=== PATIENT | female | born 1950 | race Caucasian/White ===

== ENCOUNTER 2018-08-19 13:50 | Inpatient (IN) | payer OTHER ==
[2018-08-19 14:37] VITALS: BP 129/76
[2018-08-19] MEDS ORDERED: Magnesium Hydroxide (MOM) 30 mL UDC PO PRN (19:54)
[2018-08-19] MEDS ORDERED: Maalox 30 mL Cup PO PRN (19:54)
[2018-08-20] MEDS: Multivitamin Tab PO SCH (08:04)
--- NOTE | 2018-08-20 09:01 | History and Physical ---
History of Present Illness - HPI Chief Complaint: Suicidal Ideation HPI: 68 y/o female who was transferred to [facility] from [facility] ER when patient was found to have cuts to her wrists. Patient has a known history of depression with a history of attempted overdose one week ago. Patient was transferred here for further evaluation and treatment. Vital Signs: Last Vital Signs Temp 97.3 F 08/20/18 06:56 Pulse 91 08/20/18 06:56 Resp 19 08/20/18 06:56 BP 123/80 08/20/18 06:56 Pulse Ox 97 08/20/18 06:56 Past Medical History Cardiovascular: Report: No Pertinent Hx Pulmonary: Report: No Pertinent Hx SALESPERSON FASHION ACCESSORIES: Report: No Pertinent Hx GI: Report: No Pertinent Hx Psych: Report: Psychosis Musculoskeletal: Report: No Pertinent Hx Rheumatologic: Report: No pertinent Hx Infectious Disease: Report: No Pertinent Hx Renal/: Report: No Pertinent Hx Endocrine: Report: No Pertinent Hx Dermatology: Report: No Pertinent Hx - Past Surgical History Past Surgical History: No pertinent Hx Social History Smoke: No Alcohol: None Drugs: None Lives: With Family - Allergies Allergies/Adverse Reactions: Allergies Allergy/AdvReac Type Severity Reaction Status Date / Time codeine Allergy Mild NAUSEA Verified 08/19/18 14:42 SULFA Allergy Mild SKIN Uncoded 08/19/18 14:42 REDNESS TAPE Allergy Unknown RASH Uncoded 08/19/18 14:52 Review of Systems - Review of Systems Constitutional: Report: No Significant Eyes: Report: No Significant ENT: Report: No Significant Respiratory: Report: No Significant Cardiovascular: Report: No Significant Gastrointestinal: Report: No Significant Genitourinary: Report: No Significant Musculoskeletal: Report: No Significant Skin: Report: No Significant Neurological: Report: No Significant Physical Exam - Physical Exam HEENT: Report: Ears Nose Throat within normal limits, Pharnyx within normal limits Neck: Report: Within normal limits Cardiovascular Systems: Report: +s1/s2 noted, Regular, Rate and Rhythm Respiratory: Report: Breath Sounds are within normal limits Abdomen: Report: Non-tender to palpation Back: Report: Inspection of back is within normal limits. Extremities: Report: Non-tender to palpation. Skin: Report: Color of skin is within normal limits Neuro/Psych: Report: Mood affect is within normal limits - Assessment Assessment: psychosis depression anxiety disorder insomnia arthritis - Plan Plan: admit to [facility]
--- NOTE | 2018-08-21 06:07 | Psychiatric Evaluation ---
DATE OF SERVICE: PSYCHIATRIC INITIAL EVALUATION AND MENTAL STATUS EXAM PATIENT'S AGE: 68-year-old. SEX: Female. PHYSICIAN: Dr. Sotomayor. CHIEF COMPLAINT: "I overdosed on pills a week and half ago." HISTORY OF PRESENT ILLNESS: The patient is a 68-year-old female with a history of depression. The patient overdosed on pills about one and half weeks ago. The patient said that she has been feeling depressed and she is a and her 4 years ago. She has been feeling hopeless and helpless. The patient also started to cut her wrists and that is when she was admitted to [facility] where she got treatment there and the patient after that was waiting for placement in a psych facility. The patient said that she has been feeling hopeless and helpless and has been very depressed and she felt that there is no reason for her to live. She also is feeling lonely. She also has been having lack of motivations and lack of energy. PAST PSYCHIATRIC HISTORY: The patient said that she was in treatment with a psychologist, but never seen a psychiatrist. PAST MEDICAL HISTORY: No major medical problems except that the patient cut her wrists. SOCIAL HISTORY: The patient lives by herself. She has two sons, one live in the city [facility] and the other lives in the [facility]. The patient lives in the [facility]. She denies any alcohol or any street drug use and she denies any legal issues or abuse issues. ALLERGIES: No known allergies. MENTAL STATUS EXAMINATION: The patient appears her stated age. Anxious. Sad affect. In a depressed mood. Poor eye contact. Normal tone and rate of speech. Thought processes are mainly goal directed. The patient denies any hallucinations or delusions. She denies any homicidal ideations, but admits to suicidal ideations. The patient is alert and oriented to time, place, person, and situation. Intact immediate, recent and remote memories. Fair insight, but poor judgment. She seems to be of average intelligence based on her verbal ability. ASSESSMENT: PRIMARY DIAGNOSIS: Major depression, severe, recurrent, without psychotic features. TREATMENT PLAN: We will monitor the patient's behavior and condition closely. We will start individual as well as milieu psychotherapy. We will monitor psychotropic medications and we will increase Lexapro to 15 mg every day. ESTIMATED LENGTH OF STAY: 5-7 days. THE PATIENT'S STRENGTHS AND WEAKNESSES: The patient's general fund of knowledge is fair and she has supportive children. Weaknesses is her ineffective coping. AFTER DISCHARGE PLAN: Outpatient treatment and followup will continue as an outpatient. CRITERIA FOR DISCHARGE: The patient will not be psychotic and will not be suicidal and will stabilize psychotropic medications. [facility]# [id number]
[2018-08-21] MEDS: Multivitamin Tab PO SCH (08:21)
--- NOTE | 2018-08-21 08:40 | General Progress Note ---
Subjective - Review of Systems Service Date: 08/21/18 Subjective: Patient is awake, alert. no acute distress VS T97.8 P81 R18 BP 151/83 Objective - Physical Exam Vitals and I&O: Vital Signs Temp 97.8 F 08/21/18 06:37 Pulse 81 08/21/18 06:37 Resp 18 08/21/18 06:37 BP 151/83 08/21/18 06:37 Pulse Ox 98 08/21/18 06:37 Intake & Output 08/20/18 08/21/18 08/21/18 18:59 06:59 18:59 Intake Total 960 240 Balance 960 240 Intake: Oral 960 240 Other: # Voids 3 1 # Bowel Movements 1 Active Medications: Current Medications Acetaminophen (Tylenol) 650 mg PO Q4HR PRN PRN Reason: Mild Pain 1-3 / Temp above 100 Stop: 10/18/18 19:53 Al Hydrox/Mg Hydrox/Simethicone (Maalox) 30 ml PO Q4HR PRN PRN Reason: GI DISTRESS Stop: 10/18/18 19:53 Last Admin: 08/20/18 09:27 Dose: 30 ml Escitalopram Oxalate (Lexapro) 15 mg PO DAILY KEM; Protocol Stop: 10/19/18 08:59 Last Admin: 08/21/18 08:21 Dose: 15 mg Lorazepam (Ativan) 0.5 mg PO Q4HR PRN; Protocol PRN Reason: Anxiety Stop: 09/18/18 19:53 Last Admin: 08/21/18 04:42 Dose: 0.5 mg Magnesium Hydroxide (Milk Of Magnesia) 30 ml PO HS PRN PRN Reason: Constipation Multivitamins/Vitamin C (Theragran) 1 tab PO DAILY KEM Stop: 10/19/18 08:59 Last Admin: 08/21/18 08:21 Dose: 1 tab Quetiapine Fumarate (Seroquel) 25 mg PO BID KEM; Protocol Stop: 10/18/18 16:59 Last Admin: 08/21/18 08:21 Dose: 25 mg Quetiapine Fumarate (Seroquel) 100 mg PO HS KEM; Protocol Stop: 10/18/18 20:59 Last Admin: 08/20/18 21:12 Dose: 100 mg Tramadol HCl (Ultram) 50 mg PO Q6HR PRN PRN Reason: SEVERE PAIN Stop: 10/18/18 16:51 Last Admin: 08/21/18 08:20 Dose: 50 mg Trazodone HCl (Desyrel) 100 mg PO HS KEM; Protocol Stop: 10/18/18 20:59 Last Admin: 08/20/18 21:11 Dose: 100 mg Zolpidem Tartrate (Ambien) 5 mg PO HS PRN PRN Reason: Insomnia Stop: 10/18/18 19:53 General: Alert, No acute distress HEENT: Atraumatic, PERRLA, EOMI Neck: Supple Cardiovascular: Regular rate, Normal S1, Normal S2 Lungs: Clear to auscultation Abdomen: Bowel sounds Extremities: no Clubbing, no Cyanosis, no Edema Neurological: Normal gait Assessment/Plan - Assessment Assessment: psychosis depression anxiety disorder insomnia arthritis BP elevated. - Plan Plan: continue current treatment.
--- NOTE | 2018-08-22 05:49 | General Progress Note ---
Subjective - Review of Systems Service Date: 08/22/18 Subjective: Patient is awake, alert. no acute distress VS T97.2 P81 R18 BP 143/76 Objective - Physical Exam Vitals and I&O: Vital Signs Temp 98.2 F 08/21/18 21:44 Pulse 81 08/21/18 21:44 Resp 18 08/21/18 21:44 BP 143/76 08/21/18 21:44 Pulse Ox 97 08/21/18 21:44 Intake & Output 08/21/18 08/21/18 08/22/18 06:59 18:59 06:59 Intake Total 240 1000 Balance 240 1000 Intake: Oral 240 1000 Other: # Voids 1 3 # Bowel Movements 1 Stool Characteristics Soft Active Medications: Current Medications Acetaminophen (Tylenol) 650 mg PO Q4HR PRN PRN Reason: Mild Pain 1-3 / Temp above 100 Stop: 10/18/18 19:53 Al Hydrox/Mg Hydrox/Simethicone (Maalox) 30 ml PO Q4HR PRN PRN Reason: GI DISTRESS Stop: 10/18/18 19:53 Last Admin: 08/20/18 09:27 Dose: 30 ml Escitalopram Oxalate (Lexapro) 15 mg PO DAILY KEM; Protocol Stop: 10/19/18 08:59 Last Admin: 08/21/18 08:21 Dose: 15 mg Lorazepam (Ativan) 0.5 mg PO Q4HR PRN; Protocol PRN Reason: Anxiety Stop: 09/18/18 19:53 Last Admin: 08/21/18 20:52 Dose: 0.5 mg Magnesium Hydroxide (Milk Of Magnesia) 30 ml PO HS PRN PRN Reason: Constipation Multivitamins/Vitamin C (Theragran) 1 tab PO DAILY KEM Stop: 10/19/18 08:59 Last Admin: 08/21/18 08:21 Dose: 1 tab Quetiapine Fumarate (Seroquel) 25 mg PO BID KEM; Protocol Stop: 10/18/18 16:59 Last Admin: 08/21/18 16:29 Dose: 25 mg Quetiapine Fumarate (Seroquel) 100 mg PO HS KEM; Protocol Stop: 10/18/18 20:59 Last Admin: 08/21/18 20:52 Dose: 100 mg Tramadol HCl (Ultram) 50 mg PO Q6HR PRN PRN Reason: SEVERE PAIN Stop: 10/18/18 16:51 Last Admin: 08/21/18 20:52 Dose: 50 mg Trazodone HCl (Desyrel) 100 mg PO HS KEM; Protocol Stop: 10/18/18 20:59 Last Admin: 08/21/18 20:53 Dose: 100 mg Zolpidem Tartrate (Ambien) 5 mg PO HS PRN PRN Reason: Insomnia Stop: 10/18/18 19:53 General: Alert, No acute distress HEENT: Atraumatic, PERRLA, EOMI Neck: Supple Cardiovascular: Regular rate, Normal S1, Normal S2 Lungs: Clear to auscultation Abdomen: Bowel sounds Extremities: no Clubbing, no Cyanosis, no Edema Neurological: Normal gait Assessment/Plan - Assessment Assessment: psychosis depression anxiety disorder insomnia arthritis BP elevated. - Plan Plan: continue current treatment.
[2018-08-22] MEDS: Multivitamin Tab PO SCH (08:42)
--- NOTE | 2018-08-23 00:58 | Progress Notes ---
DATE: 08/22/2018 SUBJECTIVE: The patient was seen, chart reviewed, and discussed with staff. The patient continues to be depressed, feelings of hopelessness, helplessness with thoughts of wanting to overdose. The patient cites a recent of her as a primary source of distress. She has, however, been eating and sleeping okay, has been active on the unit and attends all of her groups. PLAN: The patient continues to be very depressed, actively suicidal, so that she will require inpatient care center treatment. We will monitor patient on a daily basis for response to medications and titrate medication as needed. [facility]# [id number]
--- NOTE | 2018-08-23 05:26 | General Progress Note ---
Subjective - Review of Systems Service Date: 08/23/18 Subjective: Patient is awake, alert. no acute distress VS T98.2 P67 R19 BP 141/87 Objective - Physical Exam Vitals and I&O: Vital Signs Temp 98.2 F 08/22/18 20:00 Pulse 67 08/22/18 20:00 Resp 19 08/22/18 20:00 BP 141/87 08/22/18 20:00 Pulse Ox 99 08/22/18 20:00 Intake & Output 08/22/18 08/22/18 08/23/18 06:59 18:59 06:59 Intake Total 1600 Balance 1600 Intake: Oral 1600 Other: # Voids 4 Stool Characteristics Soft Formed Soft Brown Active Medications: Current Medications Acetaminophen (Tylenol) 650 mg PO Q4HR PRN PRN Reason: Mild Pain 1-3 / Temp above 100 Stop: 10/18/18 19:53 Al Hydrox/Mg Hydrox/Simethicone (Maalox) 30 ml PO Q4HR PRN PRN Reason: GI DISTRESS Stop: 10/18/18 19:53 Last Admin: 08/20/18 09:27 Dose: 30 ml Escitalopram Oxalate (Lexapro) 15 mg PO DAILY KEM; Protocol Stop: 10/19/18 08:59 Last Admin: 08/22/18 08:42 Dose: 15 mg Lorazepam (Ativan) 0.5 mg PO Q4HR PRN; Protocol PRN Reason: Anxiety Stop: 09/18/18 19:53 Last Admin: 08/23/18 04:46 Dose: 0.5 mg Magnesium Hydroxide (Milk Of Magnesia) 30 ml PO HS PRN PRN Reason: Constipation Multivitamins/Vitamin C (Theragran) 1 tab PO DAILY KEM Stop: 10/19/18 08:59 Last Admin: 08/22/18 08:42 Dose: 1 tab Quetiapine Fumarate (Seroquel) 25 mg PO BID KEM; Protocol Stop: 10/18/18 16:59 Last Admin: 08/22/18 16:49 Dose: 25 mg Quetiapine Fumarate (Seroquel) 100 mg PO HS KEM; Protocol Stop: 10/18/18 20:59 Last Admin: 08/22/18 20:14 Dose: 100 mg Tramadol HCl (Ultram) 50 mg PO Q6HR PRN PRN Reason: SEVERE PAIN Stop: 10/18/18 16:51 Last Admin: 08/22/18 20:14 Dose: 50 mg Trazodone HCl (Desyrel) 100 mg PO HS KEM; Protocol Stop: 10/18/18 20:59 Last Admin: 08/22/18 20:14 Dose: 100 mg Zolpidem Tartrate (Ambien) 5 mg PO HS PRN PRN Reason: Insomnia Stop: 10/18/18 19:53 General: Alert, No acute distress HEENT: Atraumatic, PERRLA, EOMI Neck: Supple Cardiovascular: Regular rate, Normal S1, Normal S2 Lungs: Clear to auscultation Abdomen: Bowel sounds Extremities: no Clubbing, no Cyanosis, no Edema Neurological: Normal gait Assessment/Plan - Assessment Assessment: psychosis depression anxiety disorder insomnia arthritis BP elevated. - Plan Plan: continue current treatment.
[2018-08-23] MEDS: Multivitamin Tab PO SCH (08:43)
--- NOTE | 2018-08-23 16:06 | Progress Notes ---
DATE: 08/21/2018 SUBJECTIVE: Chart reviewed and the patient interviewed. Also, discussed the patient's condition with the staff and reviewed records and labs. The patient continued to be severely depressed. She is still guarded and withdrawn. The patient also continued to feel hopeless and helpless. She is also interacting minimally with others. Otherwise, the patient is compliant with taking her medications as the patient denies any side effects of medications. ASSESSMENT: The patient is still depressed and high risk suicide. TREATMENT PLAN: Continue to monitor her behavior and her condition closely. Also, we will increase Lexapro to 15 mg every day and continue to follow up closely. [facility]# [id number]
--- NOTE | 2018-08-23 16:13 | Progress Notes ---
DATE: 08/23/2018 SUBJECTIVE: The patient was seen, chart reviewed, discussed with staff. The patient continues to be very depressed, feeling of hopelessness, helplessness and intermittent thoughts of wanting to overdose. She has, however, been compliant with her medications, following unit rules with no redirections. Denies any undue side effects at this time. PLAN: The patient continues to be very depressed and suicidal, so that she will require continued inpatient care facility stabilization and treatment. We will monitor patient on a daily basis for response to medications and titrate medication as needed. JOB# [id number]
--- NOTE | 2018-08-24 08:10 | General Progress Note ---
Subjective - Review of Systems Service Date: 08/24/18 Subjective: Patient is awake, alert. no acute distress VS T97.3 P91 R20 BP 125/84 Objective - Physical Exam Vitals and I&O: Vital Signs Temp 97.3 F 08/24/18 06:19 Pulse 91 08/24/18 06:19 Resp 20 08/24/18 06:19 BP 125/84 08/24/18 06:19 Pulse Ox 98 08/24/18 06:19 Intake & Output 08/23/18 08/24/18 08/24/18 18:59 06:59 18:59 Intake Total 1720 120 Balance 1720 120 Intake: Oral 1720 120 Other: # Voids 4 1 # Bowel Movements 0 Stool Characteristics Soft Active Medications: Current Medications Acetaminophen (Tylenol) 650 mg PO Q4HR PRN PRN Reason: Mild Pain 1-3 / Temp above 100 Stop: 10/18/18 19:53 Al Hydrox/Mg Hydrox/Simethicone (Maalox) 30 ml PO Q4HR PRN PRN Reason: GI DISTRESS Stop: 10/18/18 19:53 Last Admin: 08/20/18 09:27 Dose: 30 ml Escitalopram Oxalate (Lexapro) 15 mg PO DAILY KEM; Protocol Stop: 10/19/18 08:59 Last Admin: 08/23/18 08:42 Dose: 15 mg Lorazepam (Ativan) 0.5 mg PO Q4HR PRN; Protocol PRN Reason: Anxiety Stop: 09/18/18 19:53 Last Admin: 08/24/18 06:33 Dose: 0.5 mg Magnesium Hydroxide (Milk Of Magnesia) 30 ml PO HS PRN PRN Reason: Constipation Multivitamins/Vitamin C (Theragran) 1 tab PO DAILY KEM Stop: 10/19/18 08:59 Last Admin: 08/23/18 08:43 Dose: 1 tab Quetiapine Fumarate (Seroquel) 25 mg PO BID KEM; Protocol Stop: 10/18/18 16:59 Last Admin: 08/23/18 16:39 Dose: 25 mg Quetiapine Fumarate (Seroquel) 100 mg PO HS KEM; Protocol Stop: 10/18/18 20:59 Last Admin: 08/23/18 20:28 Dose: 100 mg Tramadol HCl (Ultram) 50 mg PO Q6HR PRN PRN Reason: SEVERE PAIN Stop: 10/18/18 16:51 Last Admin: 08/23/18 20:29 Dose: 50 mg Trazodone HCl (Desyrel) 100 mg PO HS KME; Protocol Stop: 10/18/18 20:59 Last Admin: 08/23/18 20:27 Dose: 100 mg Zolpidem Tartrate (Ambien) 5 mg PO HS PRN PRN Reason: Insomnia Stop: 10/18/18 19:53 General: Alert, No acute distress HEENT: Atraumatic, PERRLA, EOMI Neck: Supple Cardiovascular: Regular rate, Normal S1, Normal S2 Lungs: Clear to auscultation Abdomen: Bowel sounds Extremities: no Clubbing, no Cyanosis, no Edema Neurological: Normal gait Assessment/Plan - Assessment Assessment: psychosis depression anxiety disorder insomnia arthritis BP elevated. - Plan Plan: continue current treatment.
[2018-08-24] MEDS: Multivitamin Tab PO SCH (08:13)
--- NOTE | 2018-08-25 05:14 | Progress Notes ---
DATE: SUBJECTIVE: Chart reviewed and the patient interviewed. Also discussed the patient's condition with the staff and reviewed records and labs. The patient is still in a depressed mood and she is still withdrawn and guarded. The patient also is still feeling hopeless, but she denies any intention to harm herself or others. She also is cooperative and compliant with taking her medications with no side effects. ASSESSMENT: The patient is still depressed and needs close monitoring. TREATMENT PLAN: Continue to work on her depression and her ineffective coping and also continue adjusting psychotropic medications. Also working on discharge plans. JOB# [id number]
--- NOTE | 2018-08-25 08:11 | General Progress Note ---
Subjective - Review of Systems Service Date: 08/25/18 Subjective: Patient is awake, alert. no acute distress VS T97.9 P83 R20 BP 150/97 Objective - Physical Exam Vitals and I&O: Vital Signs Temp 97.9 F 08/25/18 06:43 Pulse 83 08/25/18 06:43 Resp 20 08/25/18 06:43 BP 150/97 08/25/18 06:43 Pulse Ox 97 08/25/18 06:43 Intake & Output 08/24/18 08/25/18 08/25/18 18:59 06:59 18:59 Intake Total 700 300 Balance 700 300 Intake: Oral 700 300 Other: # Voids 3 2 # Bowel Movements 0 0 Stool Characteristics Soft Soft Active Medications: Current Medications Acetaminophen (Tylenol) 650 mg PO Q4HR PRN PRN Reason: Mild Pain 1-3 / Temp above 100 Stop: 10/18/18 19:53 Al Hydrox/Mg Hydrox/Simethicone (Maalox) 30 ml PO Q4HR PRN PRN Reason: GI DISTRESS Stop: 10/18/18 19:53 Last Admin: 08/20/18 09:27 Dose: 30 ml Escitalopram Oxalate (Lexapro) 15 mg PO DAILY KEM; Protocol Stop: 10/19/18 08:59 Last Admin: 08/24/18 08:12 Dose: 15 mg Lorazepam (Ativan) 0.5 mg PO Q4HR PRN; Protocol PRN Reason: Anxiety Stop: 09/18/18 19:53 Last Admin: 08/25/18 06:32 Dose: 0.5 mg Magnesium Hydroxide (Milk Of Magnesia) 30 ml PO HS PRN PRN Reason: Constipation Multivitamins/Vitamin C (Theragran) 1 tab PO DAILY KEM Stop: 10/19/18 08:59 Last Admin: 08/24/18 08:13 Dose: 1 tab Quetiapine Fumarate (Seroquel) 25 mg PO BID KEM; Protocol Stop: 10/18/18 16:59 Last Admin: 08/24/18 17:06 Dose: 25 mg Quetiapine Fumarate (Seroquel) 100 mg PO HS KEM; Protocol Stop: 10/18/18 20:59 Last Admin: 08/24/18 20:39 Dose: 100 mg Tramadol HCl (Ultram) 50 mg PO Q6HR PRN PRN Reason: SEVERE PAIN Stop: 10/18/18 16:51 Last Admin: 08/25/18 04:33 Dose: 50 mg Trazodone HCl (Desyrel) 100 mg PO HS EKM; Protocol Stop: 10/18/18 20:59 Last Admin: 08/24/18 20:39 Dose: 100 mg Zolpidem Tartrate (Ambien) 5 mg PO HS PRN PRN Reason: Insomnia Stop: 10/18/18 19:53 General: Alert, No acute distress HEENT: Atraumatic, PERRLA, EOMI Neck: Supple Cardiovascular: Regular rate, Normal S1, Normal S2 Lungs: Clear to auscultation Abdomen: Bowel sounds Extremities: no Clubbing, no Cyanosis, no Edema Neurological: Normal gait Assessment/Plan - Assessment Assessment: psychosis depression anxiety disorder insomnia arthritis BP elevated. - Plan Plan: continue current treatment.
[2018-08-25] MEDS: Multivitamin Tab PO SCH (09:28)
--- NOTE | 2018-08-27 08:02 | Discharge Summary ---
DATE OF DISCHARGE: 08/25/2018 PATIENT'S AGE: 68. SEX: Female. PHYSICIAN: Dr. Sotomayor. FINAL DIAGNOSIS/PRIMARY DIAGNOSIS: Major depression, severe, recurrent, without psychotic features. REASON FOR HOSPITALIZATION: The patient was admitted to the hospital because of suicidal ideations. The patient overdosed on pills a week and a half prior to her admission and she was severely depressed. HOSPITAL COURSE: The patient continued to be severely depressed. The patient also continued to feel hopeless and helpless. The patient also interacted more with peers and with others. She started on Lexapro under the dose adjusted to 15 mg every day. The patient also continued to take Seroquel in a dose of 25 mg twice a day and 100 mg at bedtime. The patient was less agitated, less irritable, and she was cooperative with her treatment and compliant with taking her medications. The patient also had supportive therapy. The patient was discharged from the hospital to home. Physical exam of the patient was basically within normal. The patient had no major medical problems once in the hospital and the blood workup was also basically within normal. AFTER DISCHARGE PLAN: The patient discharged from the hospital and returned home with plans to follow her as an outpatient. The patient was given appointment to see me in my office in [place] on , 09/01. Also, we will order home health care for the patient. EXPECTED OUTCOME AFTER DISCHARGE: Fair if the patient continues her treatment and follow up with discharge plans. [facility]# [id number]
== END 2018-08-25 14:50 | disposition home or self-care (01) | DRG 885 ==
LOC: GERO 13:50
PROVIDERS: ADMIT Psychiatry & Neurology Psychiatry; ATTEND Psychiatry & Neurology Psychiatry
DX: F33.2 Major depressive disorder, recurrent severe without psychotic features (principal); F29 Unspecified psychosis not due to a substance or known physiological condition; G47.00 Insomnia, unspecified; M19.90 Unspecified osteoarthritis, unspecified site; F41.9 Anxiety disorder, unspecified; Z88.5 Allergy status to narcotic agent; Z88.2 Allergy status to sulfonamides; Z91.048 Other nonmedicinal substance allergy status
CPT/HCPCS: 83036-90; Z7610